=== PATIENT | male | born 1975 | race Caucasian/White ===

== ENCOUNTER 2021-04-13 11:02 | Emergency (ER) | payer OTHER, BC ==
--- NOTE | 2021-04-13 11:48 | XRAY Report ---
PROCEDURE: Ankle 3 View LT INDICATIONS: ankle injury TECHNIQUE: 3 views of the ankle were acquired. COMPARISON: None FINDINGS: Bones: No fractures or dislocations. Ankle mortise is normally aligned. No suspicious bony lesions . Small accessory ossicles versus dystrophic calcifications noted adjacent to the medial malleolus. Soft tissues: No tibiotalar joint effusion. Achilles tendon appears normal. IMPRESSION: No fracture. No acute osseous lesion. If there persistent symptoms or continued clinical concern for pathology, then repeat plain film radiographs (7-10 days) or advanced imaging (CT, MR, bone scan) lowell uld be considered for further evaluation. Reviewed by: Sonali Ordonez MD, PhD on 04/13/2021 11:46 AM PDT Approved by: Sonali Ordonez MD, PhD on 04/13/2021 11:46 AM PDT Station ID: [id number]
[2021-04-13 14:16] VITALS: BP 136/87
--- NOTE | 2021-04-13 14:16 | ED Physician Documentation ---
History of Present Illness - Stated complaint Stated Complaint: L ANKLE INJ - Chief complaint Chief Complaint: Trauma Ext - History obtained from History obtained from: Patient - Additonal information Additional information: Unimpeded.45-year-old man with history of frequent ankle injuries presents with left ankle pain sudden onset after rolling it at work on Friday while walking he states that he fell to the ground and had sudden onset pain but was able to ambulate immediately after. It is progressively worsened since that time. He is still ambulatory but does endorse some mild swelling to the left ankle and pain with range of motion.No focal sensory or motor deficits. Review of Systems Skin: denies: Lesions, Abrasion (s) Musculoskeletal: reports: Extremity pain, Joint pain Neurologic: denies: Focal weakness, Numbness PD PAST MEDICAL HISTORY - Past Medical History Past Medical History: No - Past Surgical History Past Surgical History: Yes Ortho: Knee replacement - Present Medications Home Medications: Ambulatory Orders Medication Instructions Recorded Confirmed No Known Home Medications 04/13/21 04/13/21 - Allergies Allergies/Adverse Reactions: Allergies Allergy/AdvReac Type Severity Reaction Status Date / Time No Known Drug Allergies Allergy Verified 04/13/21 11:40 - Social History Does the pt smoke?: No Smoking Status: Never smoker Does the pt drink ETOH?: No Does the pt have substance abuse?: No Substance Use and Type: Marijuana - Immunizations Immunizations are current?: No PD ED PE NORMAL - Vitals Vital signs reviewed: Yes - General General: Alert and oriented X 3, No acute distress, Well developed/nourished - HEENT HEENT: Atraumatic, PERRL, EOMI - Derm Derm: Normal color, Warm and dry - Extremities Extremities: No deformity, Other (Full range of motion of left ankle. Discomfort with palpation of area just anterior to lateral malleolus. Mild swelling. 2+ bilateral DP PT pulses.Normal strength and sensation) Results - Vitals Vitals: Vital Signs - 24 hr 04/13/21 11:38 Temperature 36.4 C L Heart Rate 74 Respiratory 16 Rate Blood Pressure 147/82 H O2 Saturation 100 Oxygen O2 Source Room air PD MEDICAL DECISION MAKING - ED course ED course: 45-year-old man presents with mild ankle sprain. L&I paperwork filled out. Return precautions given. He was placed in an Reynaldo wrap. will f/u ortho. Departure - Departure Disposition: 01 Home, Self Care Clinical Impression: Ankle sprain Condition: Good Instructions: ED Sprain Ankle W X Ray Follow-Up: Shorty Perez MD [Provider Admit Priv/Credential] - Comments: You were seen in the emergency department for an ankle sprain. Your x-ray did not show a break in the bone. Return the emergency department if you have any new or worsening symptoms or other concerns. Follow-up with orthopedics. Forms: Activity restrictions
== END 2021-04-13 14:19 | disposition home or self-care (01) ==
LOC: ED 11:02
DX: S93.402A Sprain of unspecified ligament of left ankle, initial encounter (principal); X50.1XXA Overexertion from prolonged static or awkward postures, initial encounter; Y93.01 Activity, walking, marching and hiking; Y92.89 Other specified places as the place of occurrence of the external cause; Y99.0 Civilian activity done for income or pay
CPT/HCPCS: 99282; 99283

== ENCOUNTER 2021-06-25 08:03 | Outpatient (CLI) | payer BC ==
[2021-06-25 09:13] LABS: ALBUMIN 4.4 g/dL (3.2-5.5); ALBUMIN/GLOBULIN RATIO 1.5 (1.0-2.2); ALKALINE PHOSPHATASE 65 IU/L (42-121); ALT ALANINE AMINOTRANSFERASE 28 IU/L (10-60); AST ASPARTATE AMINOTRANSFERASE 22 IU/L (10-42); BILIRUBIN,TOTAL 0.7 mg/dL (0.2-1.0); BUN - BLOOD UREA NITROGEN 22 mg/dL (6-20); CALCIUM 9.1 mg/dL (8.5-10.3); CARBON DIOXIDE - CO2 25 mmol/L (21-32); CHLORIDE 104 mmol/L (101-111); CHOL/HDL RATIO 2.4 (<5.0); CHOLESTEROL 202 mg/dL; GFR - MDRD 80 (>89); GLUCOSE 110 mg/dL (70-100); HDL CHOLESTEROL 83 mg/dL; LDL CHOLESTEROL,CALCULATED 108 mg/dL; LDL/HDL RATIO 1.3 (<3.6); POTASSIUM 4.5 mmol/L (3.5-5.0); SODIUM 137 mmol/L (135-145); TOTAL PROTEIN 7.3 g/dL (6.7-8.2); TRIGLYCERIDES 56 mg/dL; VLDL CHOLESTEROL 11 mg/dL
[2021-06-25 09:19] LABS: CA 125 13.3 U/mL (0.0-35.0)
[2021-06-25 09:22] LABS: THYROID STIMULATING HORMONE 1.01 uIU/mL (0.34-5.60)
[2021-06-25 09:32] LABS: FOLATE 18.26 ng/mL (5.90 - >24.8)
[2021-06-25 09:35] LABS: ESTIMATED AVERAGE GLUCOSE 111 mg/dL (70-100); HEMOGLOBIN A1c% 5.5 % (4.27-6.07)
== END 2021-06-25 08:04 | disposition home or self-care (01) ==
LOC: LAB 08:03
DX: E55.9 Vitamin D deficiency, unspecified (principal); Z13.220 Encounter for screening for lipoid disorders
CPT/HCPCS: 36415; 80053; 80061; 82306; 82607; 82746; 83036; 83090; 83721; 84153; 84443; 85025; 86304

== ENCOUNTER 2023-02-20 18:45 | Outpatient (CLI) | payer BC ==
[2023-02-23 06:08] LABS: RPR Non Reactive (Non Reactive)
[2023-02-24 01:06] LABS: HIV SCREEN 4TH GENERATION Non Reactive (Non Reactive)
[2023-02-24 06:07] LABS: HCV AB Non Reactive (Non Reactive)
== END 2023-02-20 18:56 | disposition home or self-care (01) ==
LOC: LAB.N 18:45
PROVIDERS: ATTEND Registered Nurse
DX: Z11.3 Encounter for screening for infections with a predominantly sexual mode of transmission (principal)
CPT/HCPCS: 36415; 86592; 86803; 87389; 87491; 87591; 87661

== ENCOUNTER 2023-02-21 08:00 | Outpatient (CLI) | payer BC, OTHER ==
[2023-02-21 22:54] LABS: CHLAMYDIA TRACHOMATIS DNA NEGATIVE (NEGATIVE); NEISSERIA GONORRHOEAE DNA NEGATIVE (NEGATIVE); TRICHOMONAS VAGINALIS DNA NEGATIVE (NEGATIVE)
== END 2023-02-21 23:59 | disposition home or self-care (01) ==
LOC: LAB.N 08:00
PROVIDERS: ATTEND Registered Nurse
DX: Z11.3 Encounter for screening for infections with a predominantly sexual mode of transmission (principal)
CPT/HCPCS: 87491; 87591; 87661